=== PATIENT | female | born 1970 | race Hispanic/Latino ===

== ENCOUNTER 2018-03-21 10:19 | Emergency (ER) | payer OTHER ==
[2018-03-21] MEDS ORDERED: IBUPROFEN 600 MG TABLET ONE (10:36)
== END 2018-03-21 10:57 | disposition home or self-care (01) ==
LOC: EDH 10:19
DX: S93.491A Sprain of other ligament of right ankle, initial encounter (principal); I10 Essential (primary) hypertension; W01.0XXA Fall on same level from slipping, tripping and stumbling without subsequent striking against object, initial encounter; Y93.01 Activity, walking, marching and hiking; Y92.89 Other specified places as the place of occurrence of the external cause; Y99.8 Other external cause status
CPT/HCPCS: 73610

== ENCOUNTER 2019-11-19 16:27 | Emergency (ER) | payer BC, OTHER ==
[~2019-11-19 16:27] MED LIST: PROMETHAZINE HCL 25 MG/ML 1ML AMPULE IM ONE
[2019-11-19] MEDS ORDERED: IBUPROFEN 600 MG TABLET ONE (16:47)
== END 2019-11-19 18:25 | disposition home or self-care (01) ==
LOC: EDH 16:27
DX: G44.209 Tension-type headache, unspecified, not intractable (principal); T59.4X4A Toxic effect of chlorine gas, undetermined, initial encounter; F32.9 Major depressive disorder, single episode, unspecified; I10 Essential (primary) hypertension
CPT/HCPCS: 96372; 99284; J2550